=== PATIENT | male | born 1960 | race Two or more races ===

== ENCOUNTER 2017-11-22 14:39 | Emergency (ER) | payer MEDICAID ==
[~2017-11-22] VITALS: Ht 167.6 cm; Wt 114.8 kg
[~2017-11-22 14:39] MED LIST: NKM
[2017-11-22] MEDS ORDERED: UNOBMED (15:18)
[2017-11-22] MEDS ORDERED: Tetanus/Diptheria/Pertussis Vaccine 0.5ml Syr IM ONE (15:30)
--- NOTE | 2017-11-22 16:21 | Emergency Room Report ---
History of Present Illness General Chief Complaint: Laceration Source: Patient Present Illness HPI Pt. presents to the ED c/o laceration to Right hand after scraping it against a sharp edge of a glass table. tetanus is unknown, not taking blood thinning medications. reports glass did not break. reports 5/10 in severity burning pain at the site of the laceration. Denies numbness tingling or loss of sensation or gross motor movements of the extremities, incontinence of bowel or bladder. Denies CP, Palpitations, LOC, AMS, dizziness, Changes in Vision, Sensation, paresthesias, or a sudden severe headache Allergies: Coded Allergies: No Known Allergies (Unverified , 11/22/17) Patient History Past Medical History: see triage record Past Surgical History: none Pertinent Family History: none Reviewed Nursing Documentation: PMH: Agreed, PSxH: Agreed Nursing Documentation-PMH Hx Asthma: Yes Hx Diabetes: Yes Review of Systems All Other Systems: negative except mentioned in HPI Physical Exam Vital Signs Date Time Temp Pulse Resp B/P (MAP) Pulse Ox O2 Delivery O2 Flow Rate FiO2 11/22/17 15:11 98.2 81 17 115/84 94 Room Air Sp02 EP Interpretation: reviewed, normal General Appearance: no apparent distress, alert, GCS 15, non-toxic Head: normocephalic, atraumatic ENT: hearing grossly normal, normal voice Neck: full range of motion Respiratory: lungs clear, normal breath sounds, speaking full sentences Cardiovascular #1: regular rate, rhythm, no edema Musculoskeletal: back normal, gait/station normal, normal range of motion, non- tender Neurologic: alert, oriented x3, responsive, motor strength/tone normal, sensory intact, speech normal, grossly normal Psychiatric: judgement/insight normal Skin: normal color, no rash, warm/dry, well hydrated, laceration - Laceration to the Dorsum of right hand flap/avulsion 3 cm in length Lymphatic: no adenopathy Procedures Laceration/Wound Repair Laceration/Wound Repair : Consent: Verbal Wound Location: upper extremity - Laceration to the Dorsum of right hand flap/avulsion 3 cm in length- across the right 5th finger knuckle. Wound's Depth, Shape: superficial, irregular, flap Wound Length (cm): 3 Wound Explored: clean Irrigated w/ Saline (ccs): 500 Wound Repaired With: Steri-strips - 3 Sterile Dressing Applied?: Yes Splint Applied?: Yes Type of Splint Applied: Finger splint to middle finger to immobilize knuckle where laceration start Medical Decision Making PA Attestation Dr. Garcia is my supervising Physician whom patient management has been discussed with. Diagnostic Impression: Primary Impression: Laceration ER Course Pt. presents to the ED c/o laceration to Right hand after scraping it against a sharp edge of a glass table. tetanus is unknown, not taking blood thinning medications. reports glass did not break. reports 5/10 in severity burning pain at the site of the laceration. Denies numbness tingling or loss of sensation or gross motor movements of the extremities, incontinence of bowel or bladder. Denies CP, Palpitations, LOC, AMS, dizziness, Changes in Vision, Sensation, paresthesias, or a sudden severe headache Ddx considered but are not limited to laceration, tendon injury, cellulitis, amputation Vital signs: are WNL, pt. is afebrile H&PE are most consistent with: Laceration to the Dorsum of right hand flap/ avulsion 3 cm in length- across the right 5th finger knuckle. ORDERS: none required at this time, the diagnosis is clinical ED INTERVENTIONS: -Tetanus vaccine was administered as pt. vaccination status was unknown. - The wound was copiously irrigated with normal saline, and explored for foreign body for which no FB was found. - The wound was approximated and closed using Steri-Strips - Finger Splint applied by sonogram technician. Pt. remains neurovascularly intact. Discussed with patient: That we make every effort to approximate the laceration as best as we can so that scarring will be as cosmetically pleasing as possible with our limited cosmetic skill set in the Emergency dept. Regardless of our best efforts there will be scarring after laceration repair. The extent of scarring is unknown at this time. DISCHARGE: At this time pt. is stable for d/c to home. Will provide printed patient care instructions, and any necessary prescriptions. Care plan and follow up instructions have been discussed with the patient prior to discharge. Last Vital Signs Date Time Temp Pulse Resp B/P (MAP) Pulse Ox O2 Delivery O2 Flow Rate FiO2 11/22/17 15:11 98.2 81 17 115/84 94 Room Air Disposition: HOME, SELF-CARE Condition: Stable Scripts Bacitracin/Polymyxin B Sulfate (BACITRACIN-POLYMYXIN OINTMENT) 28.35 Gm Oint...g. 1 APPLIC TP BID, #28.3 GM Prov: Linda Cole 11/22/17 Patient Instructions: Nonsutured Laceration Care Additional Instructions: Take medications as directed. !!!!!!!!! DO NOT apply antibiotic ointment or cream until after Steri-Strips have fallen off an approximately one week !!!!! Follow up with a Primary Care Provider in 3-5 days, even if your symptoms have resolved. --Please review list of primary care clinics, if you do not already have a primary care provider Return sooner to ED if new symptoms occur, or current symptoms become worse. - Please note that this Emergency Department Report was dictated using [employer] placement technology software, occasionally this can lead to erroneous entry secondary to interpretation by the dictation equipment. Linda Cole Nov 22, 2017 16:21
[2017-11-22] MEDS ORDERED: BACITRACIN-P28.35 GM TP (16:22)
[2017-11-22 16:30] VITALS: BP 120/76
== END 2017-11-22 16:40 | disposition home or self-care (01) ==
LOC: EMR 16:35
DX: S61.411A Laceration without foreign body of right hand, initial encounter (principal); W22.03XA Walked into furniture, initial encounter; Y92.89 Other specified places as the place of occurrence of the external cause; Z23 Encounter for immunization; E11.9 Type 2 diabetes mellitus without complications; J45.909 Unspecified asthma, uncomplicated
CPT/HCPCS: 90471; 90715; 99283